=== PATIENT | female | born 1955 | race African-American/Black ===

== ENCOUNTER → 2017-03-25 | Outpatient (CLI) | payer OTHER ==
[~2017-03-25] MED LIST: DYAZIDE 37.5-21 EACH PO; POTASSIUM20 PO
== END ==
LOC: RAD 03-24 07:23
DX: M19.012 Primary osteoarthritis, left shoulder (principal); R05 Cough; R06.2 Wheezing; R06.02 Shortness of breath

== ENCOUNTER → 2017-04-05 | Outpatient (CLI) | payer OTHER ==
--- NOTE | ~2017-04-05 | 2DMMODE ---
[facility] [address] [place] [address] 2 D/M-MODE ECHOCARDIOGRAM Name: ZUNILDAJENN Room #: REG [facility]#: [id number] Admission: 04/05/17 Attend Phys: Physician not on s Discharge: Date of : 55 Date of Service: 04/05/17 1553 Report #: [id number] THIS REPORT FOR: //name// APPROVED REPORT Study performed: 04/05/2017 15:11:49 EXAM: Comprehensive 2D, Doppler, and color-flow Echocardiogram Patient Location: Out-Patient Room #: Echo lab Status: routine BSA: 2.45 HR: 102 bpm BP: 154/96 mmHg Other Information Study Quality: Fair Indications Cardiomegaly 2D Dimensions LVEF(%): 63.24 (>50%) IVSd: 13.09 (7-11mm) LVOT Diam: 19.66 (18-24mm) LVDd: 46.39 mm PWd: 13.41 (7-11mm) Ascending Ao: 31.37 (22-36mm) LVDs: 30.52 (25-40mm) Aortic Root: 32.37 mm Thompson's LVEF: 63.24 % Volumes Left Atrial Volume (Systole) Single Plane 4CH: 40.91 mL Single Plane 2CH: 61.60 mL LA ESV Index: 24.00 mL/m2 Aortic Valve AoV Peak Shalom.: 1.77 m/s AO Peak Gr.: 12.59 mmHg LVOT Max P.62 mmHg LVOT Max V: 1.07 m/s ARA Vmax: 1.84 cm2 Mitral Valve E/A Ratio: 0.8 MV Decel. Time: 177.72 ms MV E Max Shalom.: 0.93 m/s [facility] [address] [place] [address] 2 D/M-MODE ECHOCARDIOGRAM Name: JENN MAURO Room #: REG [facility]#: [id number] Admission: 04/05/17 Attend Phys: Physician not on s Discharge: Date of : 55 Date of Service: 04/05/17 1553 Report #: [id number] MV A Shalom.: 1.10 m/s MV PHT: 51.54 ms IVRT: 110.73 ms Pulmonary Valve PV Peak Shalom.: 1.09 m/s PV Peak Gr.: 4.75 mmHg Pulmonary Vein P Vein S: 0.78 m/s P Vein A: 0.26 m/s P Vein D: 0.47 m/s P Vein A Dur.: 96.9 msec P Vein S/D Ratio: 1.66 Left Ventricle The left ventricle is normal size. Regional wall motion is not well visualized but grossly normal. Mild concentric left ventricular hypertrophy. The left ventricular systolic function is normal. The left ventricular ejection fraction is within the normal range. LVEF is 55-60%. Grade I - abnormal relaxation pattern. Right Ventricle The right ventricle is normal size. The right ventricular systolic function is normal. Atria The left atrium size is normal. The right atrium size is normal. Aortic Valve The aortic valve is normal in structure. No aortic regurgitation is present. There is no aortic valvular stenosis. Mitral Valve The mitral valve is normal in structure. There is no mitral valve regurgitation noted. No evidence of mitral valve stenosis. Tricuspid Valve The tricuspid valve is normal in structure. There is no tricuspid valve regurgitation noted. Pulmonic Valve The pulmonary valve is normal in structure. There is no pulmonic valvular regurgitation. Great Vessels The aortic root is normal in size. IVC is not well visualized. [facility] [address] [place] [address] 2 D/M-MODE ECHOCARDIOGRAM Name: JENN MAURO Room #: REG CL Esa#: [id number] Admission: 04/05/17 Attend Phys: Physician not on s Discharge: Date of : 55 Date of Service: 04/05/17 1553 Report #: [id number] Pericardium There is no pericardial effusion. <Conclusion> The left ventricular systolic function is normal. Regional wall motion is not well visualized but grossly normal. LVEF 55-60%. Grade I diastolic dysfunction The aortic valve is normal in structure. No aortic regurgitation or stenosis The mitral valve is normal in structure. No mitral valve regurgitation noted. Pulmonary artery pressure could not be reliably ascertained There is no pericardial effusion. <ELECTRONICALLY SIGNED> By: Aston Rivera MD, [facility] 04/05/17 1553 1553 1553 Aston Rivera MD, FAC /INF
== END ==
LOC: CV 09:30
DX: I51.7 Cardiomegaly (principal)

== ENCOUNTER → 2020-03-04 | Outpatient (CLI) | payer OTHER | LOC: SJCVCIMAG 06:49 | PROVIDERS: ATTEND Internal Medicine Cardiovascular Disease | DX: I49.3 Ventricular premature depolarization (principal); R00.0 Tachycardia, unspecified; I10 Essential (primary) hypertension; E78.5 Hyperlipidemia, unspecified ==

== ENCOUNTER → 2020-03-21 | Outpatient (CLI) | payer OTHER ==
[~2020-03-21] VITALS: Ht 162.6 cm; Wt 151.0 kg
[~2020-03-21] MED LIST changes: +ALLOPURINOL 10100 M1 PO; +ASA81BEC PO; +BENICAR20 MG PO; +PROVENTIL HFA6.7 G1 INH; +ROSUVASTATIN CA10 MG PO; +TOPROL XL25 MG PO
--- NOTE | ~2020-03-21 | H ---
[facility] [place] [address] [place] [address] HISTORY AND PHYSICAL Name: JENN MAURO Room #: REG CHARLY Lam.#: [id number] Admission: 03/21/20 Attend Phys: Pawel Holt MD, Discharge: Date of : 55 Report #: [id number] THIS REPORT FOR: cc: NILTON JORGE FAMILY PHYSICIAN or PCP Pawel Holt MD [facility] ~ DATE OF SERVICE: 03/21/2020 SHORT STAY SUMMARY HISTORY OF PRESENT ILLNESS: The patient is a 64-year-old female admitted today with some recurrent chest pain with some ____ atypical features and an abnormal nuclear stress test suggesting inferolateral ischemia, some nonspecific EKG changes. She has been lost to follow up for a couple of years. She has underlying hypertension, hypercholesterolemia, COPD, asthma and on CPAP. She has been compliant with her current medications, which are metoprolol, Maxzide, aspirin, allopurinol, albuterol, does not take a statin. Her last LDL was 95. Decreased exercise tolerance. Recent negative COVID test. PAST MEDICAL HISTORY: Positive for hypertension, sleep apnea, borderline cholesterol elevation, morbid obesity, sleep apnea with CPAP, asthma, history of gallbladder disease, prior cholecystectomy, appendectomy, tonsillectomy and carpal tunnel. SOCIAL HISTORY: No alcohol or tobacco. She is with children. No smoking or drinking. FAMILY HISTORY: Hypertension in most all of her siblings and parents. REVIEW OF SYSTEMS: Essentially negative except for stated above. PHYSICAL EXAMINATION: VITAL SIGNS: Blood pressure 146/70, pulse 75. HEENT: Eyes reveal xanthelasmas. Pharynx is clear. NECK: Shows preserved upstrokes without JVD or bruits. LUNGS: Clear. CARDIOVASCULAR: Regular rate and rhythm, S1 and S2 distant. ABDOMEN: Soft, obese and nontender. EXTREMITIES: Reveal trace of edema, nonpitting. NEUROLOGIC: Nonfocal. SKIN: Warm and dry without xanthoma or ulcer. MUSCULOSKELETAL: Varus deformity of the knees. NEUROLOGIC: Intact. HOSPITAL COURSE: The patient underwent cardiac catheterization. There was mild [facility] [address] [place] [address] HISTORY AND PHYSICAL Name: VANCE MAUROTTE Room #: REG Paul See#: [id number] Admission: 03/21/20 Attend Phys: Pawel Holt MD, Discharge: Date of : 55 Report #: [id number] 3-vessel coronary artery disease, 30-40% mid and distal LAD lesions. No indication for coronary intervention. LV function was preserved. The abdominal aorta was mildly ectatic, but not aneurysmal. That report will follow. We will observe her with IV fluids and discharge protocol. Continuing her current medications. Low dose statin. We will have further discussion with the patient regarding that. ASSESSMENT: 1. Mild 3-vessel coronary artery disease from cardiac catheterization today. 2. Hypertension. 3. Hypercholesterolemia. 4. Obesity. 5. Asthma. RECOMMENDATIONS AND PLAN: We will continue to resume home medications as well as discussion regarding statin therapy, some low dose statin would make some sense with this, mild to moderate 3-vessel disease. No lifting for 48 hours. No lying in tub, Jacuzzi or mcdowell for 5 days. Followup will be scheduled in 6 months. Thank you for asking me to assist in the care of this patient. By: 0912 0924 Pawel Holt MD, FACC /nt
[2020-03-21 07:21] VITALS: BP 164/87
[2020-03-21 07:33] LABS: HEMATOCRIT 38.8 % (37.0-47.0); HEMOGLOBIN 12.5 gm/dL (12.0-15.0); MCH 29.3 pg (26.0-34.0); MCHC 32.1 g/dL (28.0-37.0); MCV 91.2 fL (80.0-100.0); RBC 4.25 mil/uL (4.20-5.00); RDW 13.9 % (10.5-14.5); WBC 8.3 thou/uL (4.0-11.0)
[2020-03-21 07:57] LABS: CREATININE 0.9 mg/dL (0.6-1.0); POTASSIUM 3.7 mmol/L (3.5-5.1)
--- NOTE | 2020-03-21 07:59 | EKG ---
[place] [address] [email or web address] [address] ELECTROCARDIOGRAM REPORT Name: JENN MAURO [id number] Admission: 03/21/20 Attend Phys: Pawel Holt MD, Discharge: Date of : 55 Report #: [id number] 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 : 1955 Requested By: Pawel Holt Order Number: [id number] MD: Aston Rivera Measurements Intervals Musella Rate: 70 P: 31 WV: 195 QRS: -20 QRSD: 106 T: 9 QT: 400 QTc: 432 Interpretive Statements Sinus rhythm Left ventricular hypertrophy ST elevation, consider lateral injury Compared to ECG 07/01/2005 23:58:55 ST (T wave) deviation now present Electronically Signed On 03-21-2020 7:59:19 [employer]ENHOUSE SUPERINTENDENT by Aston Rivera [email or web address] <ELECTRONICALLY SIGNED> By: Aston Rivera MD, [facility] 03/21/20 0759 Aston Rivera MD, [facility] /EPI
--- NOTE | 2020-03-21 17:49 | CATHLAB ---
[facility] [place] [address] INVASIVE PROCEDURE REPORT Name: JENN MAURO Room #: REG CHARLY See#: [id number] Admission: 03/21/20 Attend Phys: Pawel Holt MD, Discharge: Date of : 55 Report #: [id number] THIS REPORT FOR: cc: NILTON JORGE FAMILY PHYSICIAN or PCP Pawel Holt MD [facility] ~ APPROVED REPORT Study performed: 03/21/2020 07:38:58 Patient Details Patient Status: Out-Patient Room #: The patient is a 64 year-old female Event Personnel Pawel Holt Wood Tile Installation Helper, Tres Doyle RN RN, Pool Ceron RTR Scrub, Joey Oliva RTR Monitor Procedures Performed Art Access - R femoral artery* Left Heart Cath w/or w/o Coronaries [id number] [facility] Aortogram Abdominal Peripheral Angio [id number] Initial Mod Sed Same Phys/QHP [facility] [id number] 84749 Mod Sed Same Phys/QHP Ea [id number] Hemostasis with Manual pressure Indication Chest pain Procedure Narrative The Right Groin^ was infiltrated with 1% Lidocaine subcutaneous anesthesia. A PINNACLE 6FR Sheath #[id number] sheath was inserted into the RFA^. Coronary angiography was performed using coronary diagnostic catheters. The right coronary system was accessed and visualized with a JR4 catheter. The left coronary system was accessed and visualized with a JL4 catheter. The left ventricle was accessed and visualized with a PIGTAIL catheter. Left ventriculogram was performed in 30 degree projection. An aortogram of the abdominal aorta was performed. Closure device was deployed with a 6 Fr MYNXGRIP 6/7F #[id number]. The patient tolerated the procedure well and there were no complications associated with the procedure. There was no hematoma. Intraoperative Conscious Sedation Sedation start time: 844 Case end Time: 912 Fentanyl 50 mcg Versed 1 mg [facility] [place] [address] INVASIVE PROCEDURE REPORT Name: JENN MAURO Room #: WILBER See#: [id number] Admission: 03/21/20 Attend Phys: Pawel Holt, Discharge: Date of : 55 Report #: [id number] Fluoro Time: 1.40 minutes Dose: DAP 9026.90 cGycm2 1053 mGy Contrast Type and Amount: Omnipaque 110 ml Hemodynamics The aortic pressure is 140/70 mmHg with a mean of 93 mmHg. The left ventricular pressure is 146/3 mmHg with a mean of mmHg. The left ventricular end diastolic pressure is 13 mmHg. Conclusion #1. Normal left jugular size and systolic function normal EF 55% #2 abdominal aortogram revealing mild aortic tortuosity no aneurysm formation. #3 Long left main free of disease giving rise to LAD and circumflex. #4 LAD with mild irregularities mid distal vessel lesion of 30 to 40% extends around the apex no high-grade occlusive disease. #5 circumflex OM nondominant with mild irregularity. #6 large dominant right coronary artery giving rise to a PDA which extends to the inferior apex. Diffuse distal disease Recommendations and plan: Continue aggressive risk factor modification no indication for coronary intervention. <ELECTRONICALLY SIGNED> By: Pawel Holt MD, [facility] 03/21/201747 47 47 Pawel Holt MD, FACC /INF
== END | disposition home or self-care (01) ==
LOC: CATH 03-20 09:03
PROVIDERS: ATTEND Internal Medicine Cardiovascular Disease
DX: R07.9 Chest pain, unspecified (principal); I25.10 Atherosclerotic heart disease of native coronary artery without angina pectoris; I70.0 Atherosclerosis of aorta; I10 Essential (primary) hypertension; J45.909 Unspecified asthma, uncomplicated; M19.90 Unspecified osteoarthritis, unspecified site; K21.9 Gastro-esophageal reflux disease without esophagitis; E78.00 Pure hypercholesterolemia, unspecified; G47.30 Sleep apnea, unspecified; E66.01 Morbid (severe) obesity due to excess calories; Z98.890 Other specified postprocedural states; Z79.899 Other long term (current) drug therapy; Z79.82 Long term (current) use of aspirin; Z88.8 Allergy status to other drugs, medicaments and biological substances